=== PATIENT | female | born 1965 | race Two or more races ===

== ENCOUNTER 2025-04-12 11:59 | Emergency (ER) | payer MEDICAID, OTHER ==
[~2025-04-12] VITALS: Ht 165.1 cm; Wt 93.0 kg
[2025-04-12 13:20] VITALS: BP 127/66; PULSE 65; RESP 16; TEMP 97.9; O2SAT 95
--- NOTE | 2025-04-12 13:35 | ED.PDOC ---
Musculoskeletal HPI Comments This is a 60 year old female presenting to the ED with chief complaint of let arm pain. Patient reports that she has been experiencing left arm pain with associated radiation down her hand and shoulder since . Patient relays that it is difficult for her to move her arm due to the pain. Patient states she had a CT done of her head and neck on 03/13/25 with no acute findings being noted. Patient denies any numbness, weakness, chest pain, SOB, or headache. Chief Complaint: Upper Extremity Time Seen by MD: 13:30 Reviewed Notes: Nurses Notes, Medications, Allergies Allergies: Coded Allergies: NO KNOWN ALLERGIES (Unverified , 04/12/25) Home Meds Active Scripts Tramadol HCl (Tramadol HCl) 50 Mg Tab, 50 MG PO Q8HP PRN for 5 Days, #15 TAB 0 Refills Prov:LARISA LOPEZ NP 04/12/25 Prednisone (Prednisone) 20 Mg Tab, 60 MG PO DAILY for 5 Days, #15 TAB 0 Refills Prov:LARISA LOPEZ NP 04/12/25 Information Source: Patient Mode of Arrival: Ambulatory Location: Left Extremity Location: Arm Timing: Days Prehospital treatment: None Severity: Moderate Able to Move Extremity: No Bear Weight: Fully Pain: Moderate Mechanism: Spontaneous Circumstances: Spontaneous Onset of Symptoms: Spontaneous Symptoms: Pain DVT Risk Factors: NONE Associated signs and symptoms: Arm pain Past Medical History PAST MEDICAL HISTORY: Denies Surgical History: Denies all surgeries APPRENTICESHIP TRAINING REPRESENTATIVE History: No Pertinent APPRENTICESHIP TRAINING REPRESENTATIVE History Family History Family History: Reviewed,noncontributory to illness Social History Smoker: Non-Smoker Alcohol: Denies ETOH Use Drugs: Denies Drug Use Lives In: Home Constitutional: denies: chills, diaphoresis, fatigue, fever, malaise, sweats, weakness, others EENTM: denies: blurred vision, double vision, ear bleeding, ear discharge, ear drainage, ear pain, ear ringing, eye pain, eye redness, hearing loss, mouth pain, mouth swelling, nasal discharge, nose bleeding, nose congestion, nose pain, photophobia, tearing, throat pain, throat swelling, voice changes, others Respiratory: denies: cough, hemoptysis, orthopnea, SOB at rest, shortness of breath, SOB with excertion, stridor, wheezing, others Cardiovascular: denies: chest pain, dizzy spells, diaphoresis, Dyspnea on exertion, edema, irregular heart beat, left arm pain, lightheadedness, palpitations, PND, syncope, others Gastrointestinal: denies: abdomen distended, abdominal pain, blood streaked bowels, constipated, diarrhea, dysphagia, difficulty swallowing, hematemesis, melena, nausea, poor appetite, poor fluid intake, rectal bleeding, rectal pain, vomiting, others Genitourinary: denies: abnormal vagina bleeding, burning, dyspareunia, dysuria, flank pain, frequency, hematuria, incontinence, pain, , vagina discharge, urgency, others Neurological: denies: dizziness, fainting, headache, left sided numbness, left sided weakness, numbness, paresthesia, pre-existing deficit, right sided numbness, right sided weakness, seizure, speech problems, tingling, tremors, weakness, others Musculoskeletal: denies: back pain, gout, joint pain, joint swelling, muscle pain, muscle stiffness, neck pain, others Integumetry: denies: bruises, change in color, change in hair/nails, dryness, laceration, lesions, lumps, rash, wounds, others Allergic/Immunocompromised: denies: Difficulty Healing, Frequent Infections, Hives, Itching, others Hematologic/Lymphatic: denies: anemia, blood clots, easy bleeding, easy bruising, swollen glands, others Endocrine: denies: excessive hunger, excessive sweating, excessive thirst, excessive urination, flushing, intolerance to cold, intolerance to heat, unexplained weight gain, unexplained weight loss, others Psychiatric: denies: anxiety, bipolar disorder, depression, hopeless, panic disorder, schizophrenia, sleepless, suicidal, others All Other Systems: Reviewed and Negative Physical Exam General Appearance: No Apparent Distress, Normal HEENT: Normal ENT Inspection, Pharynx Normal, TMs Normal Neck: Full Range of Motion, Non-Tender, Normal, Normal Inspection Respiratory: Chest Non-Tender, Lungs Clear, No Accessory Muscle Use, No Respiratory Distress, Normal Breath Sounds Cardiovascular: No Edema, No JVD, No Murmur, No Gallop, Normal Peripheral Pulses, Regular Rate/Rhythm Breast Exam: Deferred Gastrointestinal: No Organomegaly, Non Tender, No Pulsatile Mass, Normal Bowel Sounds, Soft Genitalia: Deferred Pelvic: Deferred Rectal: Deferred Extremities: No calf tenderness, Normal capillary refill, Normal inspection, Normal range of motion, Non-tender, No pedal edema Musculoskeletal : Apperance: Normal Neurologic: Alert, automatic fancy machine operator II-XII nml as Tested, No Motor Deficits, Normal Affect, Normal Mood, No Sensory Deficits Cerebellar Function: Normal Reflexes: Normal Skin: Dry, Normal Color, Warm Lymphatic: No Adenopathy Was a procedure done? Was a procedure done?: No Differential Diagnosis EXT Differential Diagnosis: Sprain, Arthritis X-Ray, Labs, Meds, VS Vital Signs Date Time Temp Pulse Resp B/P (MAP) Pulse Ox O2 Delivery O2 Flow Rate FiO2 04/12/25 13:20 65 16 95 Room Air 04/12/25 13:20 97.9 65 16 127/66 (86) 95 97.9 04/12/25 12:02 98.1 76 16 144/78 98 98.1 Current Medications Medications (Trade) Dose Ordered Sig/Deepika Route Start Time Stop Time Status Last Admin Methylprednisolone Sodium Succinate (Solu Medrol) 125 mg ONCE ONCE IM 04/12/25 13:30 04/12/25 13:31 DC 04/12/25 13:38 Ketorolac Tromethamine (Toradol Injection) 60 mg ONCE ONCE IM 04/12/25 13:30 04/12/25 13:31 DC 04/12/25 13:39 X-Ray, Labs, Meds, VS Comment This is a 60 year old female presenting to the ED with chief complaint of left arm pain Patient arrives alert and oriented, ABC's intact, afebrile, vital signs stable, saturating well in room air Patient was given: 125mg Solu-Medrol IM, Toradol 60mg IM. Tolerated medications with no adverse reaction. + neck pain radiating down the affected upper extremity Denies numbness and weakness. ED Workup: Defer C-Spine imaging given negative by NEXUS criteria Given History, Exam the patient appears to have a cervical radiculopathy. Patient appears to be low risk for complications or other emergent conditions such as anginal equivalent, maggie cervical instability, arterial dissection, osteomyelitis, epidural abscess, central cord syndrome, c-spine fracture, CVA, other spinal emergencies Rx: NSAIDs, outpatient physical therapy evaluation and recommendation for home exercises in the interim Disposition: Discharge. The patient has been given strict return precautions and understands the need to follow up within 48 hours with their primary care prov ider Patient is stable for discharge at this time. External notes reviewed. Test results and diagnostic imaging interpreted. All diagnostic findings, discharge care, education and instructions provided Follow-up with PCP in 2 to 3 days Patient verbalized understanding and agreed to treatment plan Vital signs stable, afebrile, no acute distress noted Patient ambulatory with strong steady gait Advised to return precautions for any new or worsening symptoms, return to ER immediately for re-evaluation Patient is aware that the purpose of this visit was for an acute medical emergency requiring emergent stabilization. Chronic conditions, including malignancies have not been ruled out. Patient is instructed to follow up with PCP as directed and discharge instructions for continued care and workup. If unable to arrange follow-up, patient is to return to the emergency department for reassessment. Patient (parent or legal guardian if applicable) was given verbal and written discharge instructions and acknowledges understanding. Additional MDM Review of External, Non-ED records: External records reviewed. Discussion with independent historian (EMS, family) history obtained from the patient/parents (if applicable) at bedside Chronic conditions affecting care: None Social determinants of health affecting care: None Consideration of admission (observation or admission): I considered escalation of care to admission for this patient, however given the reassuring workup, the patient is safe for outpatient management. Time of 1ST Reevaluation: 13:45 Reevaluation 1ST: Unchanged Patient Education/Counseling: Diagnosis, Treatment Family Education/Counseling: No Family Present Departure 1 Departure Time of Disposition: 14:45 Impression: Primary Impression: Cervical radiculopathy Disposition: 01 HOME / SELF CARE / HOMELESS Condition: Stable e-Prescriptions Tramadol HCl (Tramadol HCl) 50 Mg Tab 50 MG PO Q8HP PRN for 5 Days, #15 TAB 0 Refills Prov: LARISA LOPEZ TRAINING ENGINEER 04/12/25 Prednisone (Prednisone) 20 Mg Tab 60 MG PO DAILY for 5 Days, #15 TAB 0 Refills Prov: LARISA LOPEZ NP 04/12/25 Discharged With: Self Critical Care Note Critical Care Time?: No Stability Stability form required: No Heart Score Heart Score: Heart Score Response (Comments) Value History N/A 0 EKG N/A 0 Age N/A 0 Risk Factors N/A 0 Troponin N/A 0 Total 0 I personally scribed for LARISA LOPEZ NP ([employer]) on 04/12/25 at 13:35. Electronically submitted by Anshu Vela ([email or web address]). I personally scribed for LARISA LOPEZ TRAINING ENGINEER ([employer]) on 04/12/25 at 13:36. Electronically submitted by Anshu Vela ([email or web address]). I personally scribed for LARISA LOPEZ TRAINING ENGINEER ([employer]) on 04/12/25 at 14:36. Electronically submitted by Anshu Vela ([email or web address]). LARISA LOPEZ NP Apr 12, 2025 13:35
[2025-04-12] MEDS: methylPREDNISolone SOD SUCC 125 MG/2 ML VL IM ONE (13:38)
[2025-04-12] MEDS: KETOROLAC TROMETH 60MG/2ML VIAL IM ONE (13:39)
[2025-04-12] MEDS ORDERED: PRED20TA2 PO (14:46)
[2025-04-12] MEDS ORDERED: TRAM-626 PO (14:46)
== END 2025-04-12 14:51 | disposition home or self-care (01) ==
LOC: ER 11:59
DX: M54.12 Radiculopathy, cervical region (principal); Z79.899 Other long term (current) drug therapy
CPT/HCPCS: 96372; 99284; J1885; J2919